=== PATIENT | male | born 1975 | race Hispanic/Latino ===

== ENCOUNTER 2017-08-08 13:49 | Emergency (ER) | payer BC, OTHER ==
[2017-08-08] MEDS ORDERED: Lidocaine 1% Inj (20ml) INFIL STA (14:46)
[2017-08-08] MEDS ORDERED: Bacitracin 500 Units/gm Oint Foilpak UD TOP ONE (14:46)
[2017-08-08] MEDS ORDERED: Bacitracin 500 Units/gm Oint Foilpak UD ONE ×2 (14:57→17:08)
[2017-08-08] MEDS ORDERED: Lidocaine 1% Inj (20ml) ONE ×2 (14:57→17:08)
--- NOTE | 2017-08-08 16:10 | CP.PCM.CON ---
History of Present Illness - History of Present Illness History of Present Illness: Podiatry Consult Note- Dr. Cleary 42 y.o male with no PMH presents to the ED for left toe injury. Patient reports that noon today as he was moving furniture, the furniture fell on his right foot. He was wearing shoes during that time. He noticed a throbbing pain immediately but returned to moving his furniture. Later in the day, when he took his shoes off, he noticed bleeding and a laceration. He reports washing his foot under water but the bleeding did not stop prompt him to go to the ED. He denies any pain. He rates his pain 0/10. He denies n/v/sob/cp/chills or f. He denies numbness or tingling. He reports not eating or drinking since 6am this morning. PMH: none PSH: none SH: denies smoking, drinking or illicited drug use ALL: NKDA FH: denies MEDS: none ROS: denies Past Patient History - Past Social History Smoking Status: Never Smoked - PSYCHIATRIC Hx Substance Use: No - SURGICAL HISTORY Hx Surgeries: No Meds Allergies/Adverse Reactions: Allergies Allergy/AdvReac Type Severity Reaction Status Date / Time No Known Allergies Allergy Verified 08/08/17 14:05 Physical Exam - Constitutional Appears: Well, Non-toxic, No Acute Distress - Extremities Exam Extremities exam: Negative for: calf tenderness Additional comments: Vasc: DP and PT 2/4 bilaterally, temperature gradient WNL, Ortho: mild pain with palpation to the right hallux, no pain with hallux ROM. Neuro: gross and protective sensation intact bilaterally Derm: laceration noted to the hallux in the 1st interspace lateral plantarly measuring approximately 4 cm x . 2 cm x .1 cm with soft tissue exposed. Adequate soft tissue coverage with skin intact, no clinical signs of infection: no purulence, no drainage, no streaking. No abscess or fluctuance. No ecchymosis noted to the hallux. - Neurological Exam Neurological exam: Alert, Oriented x3 - Psychiatric Exam Psychiatric exam: Normal Affect, Normal Mood Results - Vital Signs Recent Vital Signs: Last Vital Signs Temp 98.4 F 08/08/17 14:03 Pulse 85 08/08/17 14:03 Resp 18 08/08/17 14:03 BP 154/97 H 08/08/17 14:03 Pulse Ox 98 08/08/17 14:03 Assessment & Plan - Assessment and Plan (Free Text) Assessment: 42 y.o male with right open hallux intraarticular comminuted fracture Plan: Patient examined and evaluated Discussed plan in detail with attending Dr. Cleary Ordered Lidocaine 1% and Marcaine .5% plain Open lesion cleanse with copious amounts of betadine and saline solution Dressed with betadine, dsd, and cling. Posterior splint placed. Patient to [facility]B with crutches Will f/u with Dr. Cleary in wound care in on Thursday Tetanus status updated. No tetanus needed. Ordered on dose of IV abx Recommends ED to d/c with Keflex 500 mg BID 7 days
--- NOTE | 2017-08-08 16:11 | RAD ---
PROCEDURE: Radiographs of the right great toe. TECHNIQUE:: AP radiograph of the right foot, with oblique and lateral view of the right great toe. COMPARISON: None available. FINDINGS: BONES: Comminuted displaced fracture deformities of the distal 1st phalanx and distal aspect of the 1st middle phalanx with intra-articular extension. JOINTS: See above. SOFT TISSUES: Radiopaque foreign body noted at the level of the soft tissues medial 3rd proximal phalanx, distal aspect. Marked soft tissue swelling. OTHER FINDINGS: None. IMPRESSION: Comminuted displaced fracture deformities of the distal 1st phalanx and distal aspect of the 1st middle phalanx with intra-articular extension. Radiopaque foreign body noted at the level of the soft tissues medial 3rd proximal phalanx, distal aspect. Marked soft tissue swelling.
[2017-08-08 16:51] VITALS: BP 132/89; PULSE 80; RESP 16; TEMP 98.7; O2SAT 97
[2017-08-08] MEDS ORDERED: ceFAZolin IV 1 gm in Dextrose 1 GM/50 ML BAG IVPB ONE (18:23)
--- NOTE | 2017-08-08 18:38 | C.PDOC ---
History Of Present Illness 42 y/o male presents to the ER for a right toe laceration which occurred earlier today. Patient reports that he was moving a large metal object on a mady and it fell off the mady onto his foot. He had shoes on and continued moving the furniture, then noted the laceration. Patient denies any change in sensation or any other injuries. Patient states that he is up to date with his tetanus shot. Time Seen by Provider: 08/08/17 14:40 Chief Complaint (Nursing): Abnormal Skin Integrity History Per: Patient History/Exam Limitations: no limitations Onset/Duration Of Symptoms: Hrs Current Symptoms Are (Timing): Still Present Severity: Moderate Past Medical History Reviewed: Historical Data, Nursing Documentation, Vital Signs Vital Signs: Last Vital Signs Temp 98.7 F 08/08/17 16:50 Pulse 80 08/08/17 16:50 Resp 16 08/08/17 16:50 BP 132/89 08/08/17 16:50 Pulse Ox 97 08/08/17 21:06 - Medical History PMH: No Chronic Diseases Surgical History: No Surg Hx Family History: States: No Known Family Hx - Social History Hx Alcohol Use: No Hx Substance Use: No - Immunization History Hx Tetanus Toxoid Vaccination: No Hx Influenza Vaccination: No Hx Pneumococcal Vaccination: No Review Of Systems Musculoskeletal: Positive for: Foot Pain (right toe pain) Neurological: Negative for: Weakness, Numbness Physical Exam - Physical Exam Appears: Non-toxic, No Acute Distress Skin: Warm Head: Atraumatic, Normacephalic Eye(s): bilateral: Normal Inspection Nose: Normal Oral Mucosa: Moist Neck: Supple Chest: Symmetrical Respiratory: No Accessory Muscle Use Extremity: Tenderness, Capillary Refill (< 2 sec), Swelling, Other (4 cm laceration to the plantar aspect of right great toe) Pulses: Left Dorsalis Pedis: Normal, Right Dorsalis Pedis: Normal Neurological/Psych: Oriented x3, Normal Speech, Normal Cognition, Normal Motor, Normal Sensation ED Course And Treatment O2 Sat by Pulse Oximetry: 97 (RA) Pulse Ox Interpretation: Normal Progress Note: Case discussed with podiatry resident, , who evaluated patient at bedside and closed the laceration. She applied a posterior orthoglasss splint and consulted with Dr Cleary. Patient informed of incidental finding of foreign body in Foot X-ray. Crutches were given and patient was instructed to follow up with railroad baggage porter,, on Thursday. Disposition - Disposition Referrals: [facility] [Outside] Disposition: HOME/ ROUTINE Disposition Time: 18:38 Condition: STABLE Additional Instructions: Follow up with with Dr Cleary on Thursday , call for an appointment. Rest, ice and elevate the area. Use crutches. Return to ER if symptoms persist or worsen. Prescriptions: Cephalexin [cephalexin] 500 mg PO BID 7 Days cap Instructions: Laceration (ED), Toe Fracture (ED) Forms: [employer] (Portuguese) - Clinical Impression Clinical Impression: Toe fracture, Toe laceration - PA / TITLE INVESTIGATOR / Resident Statement MD/DO has reviewed & agrees with the documentation as recorded. - Scribe Statement The provider has reviewed the documentation as recorded by the [place] Marks Provider Attestation All medical record entries made by the [place] were at my direction and personally dictated by me. I have reviewed the chart and agree that the record accurately reflects my personal performance of the history, physical exam, medical decision making, and the department course for this patient. I have also personally directed, reviewed, and agree with the discharge instructions and disposition.
[2017-08-08] MEDS ORDERED: ceFAZolin 1 gm FROZEN Premix 1 GM/50 ML ML IVPB ONE (18:44)
== END 2017-08-08 19:05 | disposition home or self-care (01) ==
LOC: C.ER 13:49
DX: S92.421B Displaced fracture of distal phalanx of right great toe, initial encounter for open fracture (principal); W22.8XXA Striking against or struck by other objects, initial encounter
CPT/HCPCS: 29515; 73660; 96365; 99285; J0690